=== PATIENT | male | born 1980 | race African-American/Black ===

== ENCOUNTER 2019-10-05 10:40 | Emergency (ER) | payer MEDICARE ==
[~2019-10-05] VITALS: Ht 188 cm; Wt 64.8 kg
--- NOTE | 2019-10-05 10:44 | NUR ---
[id number]
[2019-10-05 10:46] VITALS: BP 141/90
== END 2019-10-05 11:45 | disposition home or self-care (01) ==
LOC: ED 11:25
DX: N18.9 Chronic kidney disease, unspecified (principal); R63.0 Anorexia
CPT/HCPCS: 99281